=== PATIENT | female | born 1990 | race Hispanic/Latino ===

== ENCOUNTER 2020-04-11 04:55 | Inpatient (IN) | payer BC, OTHER, SELFPAY ==
[2020-04-09 14:01] VITALS: BMI 38.7
[2020-04-11] VITALS (71 sets, daily range): BP systolic 92–150; BP diastolic 55–133; PULSE 73–168; RESP 20; TEMP 36.4–37.2; O2SAT 100; BMI 40.0
[2020-04-11 05:55] LABS: Basophils Absolute Auto 0.1 K/mm3 (0.0-0.1); Basophils Percent Auto 0.5 % (0.2-1.2); Eosinophils Absolute Auto 0.1 K/mm3 (0-0.3); Eosinophils Percent Auto 0.8 % (0-4.4); Hematocrit 33.1 % (37.0-47.0); Hemoglobin 10.8 g/dL (12.0-15.0); Immature Granulocyte Absolute 0.08 K/mm3 (0.00-0.031); Immature Granulocyte Percent A 0.7 % (0-0.5); Lymphocytes Absolute Auto 3.52 K/mm3 (0.9-3.2); Lymphocytes Percent Auto 31.3 % (18.3-44.2); Mean Corpuscular HGB Conc 32.6 g/dl (32-36); Mean Corpuscular Volume 76.6 fl (80-100); Mean Platelet Volume 11.8 fl (7.4-10.4); Monocytes Absolute Auto 0.8 K/mm3 (0.1-0.6); Monocytes Percent Auto 7.4 % (2.6-8.5); Neutrophils Absolute Auto 6.7 K/mm3 (1.3-6.7); Neutrophils Percent Auto 59.3 % (45.5-73.1); Platelet Count Result 223 k/mm3 (150-375); Red Blood Count 4.32 M/mm3 (4.2-5.4); White Blood Count 11.2 K/mm3 (4.5-10.0)
--- NOTE | 2020-04-11 05:55 | LDADM ---
This patient, Linda Singleton, was admitted to Labor/Delivery/Recovery 102 on 04/11/20 at 04:55. Plans for labor, pain management and were discussed with patient. Patient/family oriented to hospital policies and general routines including ID bracelet, bed and alarms, visiting hours, pain management, procedures, bathroom and other care routines, personal items, smoking policy, room service/diet and guest tray routines, infant security routines, and visiting hours. Patient/Family are encouraged to report perceived risks to care and to ask questions if they do not understand what they are told or what they should do. See OBIX for further documentation.
[2020-04-11] MEDS: LACTATED RINGERS 1,000 ML 125 ML IV CONT ×3 (06:52→13:43)
--- NOTE | 2020-04-11 07:05 | WPDANESEPP ---
Anes - Eval Pre Procedure Procedure: Labor epidural Date/Time: 04/11/20 07:05 Surgeon: reji Preop Diagnosis: pain during labor Pre Op Diagnosis: Ind Patient Data Age: 30 Gender: F Height: 1.52 m Weight: 93 kg Last Vital Signs Pulse 86 04/11/20 07:01 BP 102/86 04/11/20 07:01 Allergies Allergy/AdvReac Type Severity Reaction Status Date / Time No Known Allergies Allergy Verified 04/11/20 05:52 Home Medications Medication Instructions Recorded Confirmed Type vit no.[id number] 1 tablet PO DAILY 04/11/20 04/11/20 History [ Vitamin] Laboratory Tests 04/11/20 04/11/20 05:44 05:44 WBC 11.2 K/mm3 H K/mm3 (4.5-10.0) RBC 4.32 M/mm3 M/mm3 (4.2-5.4) Hgb 10.8 g/dL L g/dL (12.0-15.0) Hct 33.1 % L % (37.0-47.0) MCV 76.6 fl L fl (80-100) MCH 25.0 pg L pg (26-34) MCHC 32.6 g/dl g/dl (32-36) RDW 13.0 % % (11.5-14.5) Plt Count 223 k/mm3 k/mm3 (150-375) MPV 11.8 fl H fl (7.4-10.4) Immature Gran % (Auto) 0.7 % H % (0-0.5) Neut % (Auto) 59.3 % % (45.5-73.1) Lymph % (Auto) 31.3 % % (18.3-44.2) [place] % (Auto) 7.4 % % (2.6-8.5) Eos % (Auto) 0.8 % % (0-4.4) Baso % (Auto) 0.5 % % (0.2-1.2) Lymph # (Auto) 3.52 K/mm3 H K/mm3 (0.9-3.2) [place] # (Auto) 0.8 K/mm3 H K/mm3 (0.1-0.6) Eos # (Auto) 0.1 K/mm3 K/mm3 (0-0.3) Baso # (Auto) 0.1 K/mm3 K/mm3 (0.0-0.1) Abs Immat Gran (auto) 0.08 K/mm3 H K/mm3 (0.00-0.031) Absolute Neuts (auto) 6.7 K/mm3 K/mm3 (1.3-6.7) Absolute Nucleated RBC 0.0 K/mm3 K/mm3 (0.0-0.012) Nucleated RBC % 0.0 % % (0.0-0.2) RPR Pending Patient hx anesthesia problems: none Family hx anesthesia problems: none [facility] Social History Social History Smoking status: Never smoker Substance use: never Gender identity (if verbalized by the patient): Female Sexual Orientation (if Verbalized by the Patient): Straight or Heterosexual Spiritual care concerns: No Exam Day of Procedure 04/11/20 07:05
--- NOTE | 2020-04-11 07:37 | WPDOBADMIT ---
Obstetrics - Admit Note Admission Note: record reviewed. No pertinent additions to the history and/or any subsequent changes in the physical findings that are not consistent with the expected course of the were found. MIL, attempted AROM scant fluid, pitocin, anticipate vaginal delivery Additions to the history and/or subsequent changes in the physical findings follow. None.
[2020-04-11] MEDS: OXYTOCIN 30 UNITS/NS 500 ML 30 UNITS/500 ML BAG IV CONT (08:13)
[2020-04-11 11:22] LABS: Rapid Plasma Reagin Non-Reactive (NonReactive)
[2020-04-11] MEDS: miSOPROStol 200 MCG TABLET 1000 MCG (14:57)
--- NOTE | 2020-04-11 15:01 | PM.OBPRVD ---
OB - Delivery Note Procedure Delivery date: 04/11/20 Procedure: vaginal delivery Intrapartal events: None Induction method: AROM and per pitocin protocol Delivery monitor: external FHT, external uterine, internal FHT and internal uterine Route of delivery: Laceration description: Perineal - 1st Degree Delivery repair: vicryl Specimen: No Estimated blood loss (mL): 115 Anesthesia type: Epidural Disposition: other () Complications: small increase in bleeding post placental delivery 1000mcg cytotec placed rectally and bleeding minimal, mother and baby in stablel condition Baby Date of : 04/11/20 Time of : 14:49 Weeks of gestation at delivery: 39 gender: Male Weight (pounds): 7 Weight (ounces): 5 presentation: vertex position: Right Occiput Anterior Placenta delivery description: Spontaneous cord vessel description: 3 Vessels, Nuchal Cord (x2) and Tight score one minute: 8 score five minutes: 8
[2020-04-11] MEDS: OXYTOCIN 30 UNITS/NS 500 ML 30 UNITS/500 ML BAG 125 UNITS IV CONT (15:22)
[2020-04-11] MEDS: IBUPROFEN 600 MG TABLET PO ×2 (16:27→22:49)
[2020-04-11] MEDS: WITCH HAZEL 40 PADS 1 PAD TOPICAL (16:28)
[2020-04-11] MEDS: BENZOCAINE 20% AER SPR (*SP) 56 GM CAN 1 SPRAY TOPICAL (16:28)
--- NOTE | 2020-04-11 17:54 | OBPPTRN ---
Patient transferred to post room # 281 via wheelchair. Support person present. Oriented to unit, room, information board, rooming in, admission packet and security measures. Patient verbalizes understanding.
[2020-04-11] MEDS: ACETAMINOPHEN 325 MG TABLET 650 MG PO (19:09)
[2020-04-12 04:59] LABS: Hematocrit 29.9 % (37.0-47.0); Hemoglobin 9.7 g/dL (12.0-15.0)
--- NOTE | 2020-04-12 07:24 | WPDANESPN ---
Anes - Prog Note Post-Op Date/Time: 04/12/20 07:24 Cardiovascular status: normal Respiratory status: normal Airway patency: baseline Mental status: baseline Post-Op hydration status: normal Vital Signs: Last Vital Signs Temp 37.2 C 04/11/20 19:00 Pulse 100 04/11/20 19:00 Resp 20 04/11/20 19:00 BP 114/69 04/11/20 19:00 Pulse Ox 100 04/11/20 19:00 I/O: Intake & Output 04/11/20 04/11/20 04/12/20 15:59 23:59 07:59 Intake Total 3000 740 Output Total 315 140 Balance 2685 600 Laboratory Tests 04/12/20 04:36 04/11/20 04/11/20 04/12/20 05:44 05:44 04:36 Hgb 9.7 L Hct 29.9 L RPR Non-reactive Blood Type O Positive Antibody Screen Negative Post-procedural complaints: none Patient Feedback: Patient satisfied with anesthetic care.
--- NOTE | 2020-04-12 07:58 | P.PNOB_ITS ---
OB - PN: Subj Subjective Date/time seen: 04/12/20 07:58 Patient comments: no complaints, pain well controlled and other (Lochia similar to menses) [place] baby status: doing well OB - PN: Obj Data Labs CBC & Chem 7: 04/12/20 04:36 Labs: Laboratory Results - last 24 hr 04/11/20 04/11/20 04/12/20 05:44 05:44 04:36 Hgb 9.7 L Hct 29.9 L RPR Non-reactive Blood Type O Positive Antibody Screen Negative OB - PN A/P Plan day: 1 (s/p vaginal delivery, doing well) Plan: routine care and discharge home Comments: Follow up in 4 weeks Time Spent With Patient Time: Total time spent is greater than 50% in coordination of care (as documented) at patient's floor/unit and/or counseling patient: Time with patient: less than 15 minutes Exam Const: General: no acute distress GI: Inspection: other (Fundus firm and nontender at umbilicus) GI Palp: Yes Soft to palpation and No Tenderness to palpation present (GI) Extrem: General: no edema
[2020-04-12 08:45] VITALS: BP 109/75; PULSE 86; RESP 18; TEMP 36.4; O2SAT 99
[2020-04-12] MEDS: POLYSACCHARIDE IRON COMPLEX 150 MG CAPSULE PO (08:56)
[2020-04-12] MEDS: DOCUSATE SODIUM 100 MG CAPSULE PO (08:56)
[2020-04-12] MEDS: IBUPROFEN 600 MG TABLET PO (08:56)
[2020-04-12] MEDS: TETANUS,DIPHTHERIA,AC PERTUSSIS ADULT (0.5 ML) BOOSTRIX IM (08:57)
[2020-04-13 10:31] VITALS: BP 117/81; PULSE 76; RESP 20; TEMP 36.7; O2SAT 100
--- NOTE | 2020-04-14 07:21 | PM.OBDSVD ---
OB - DS: Summary OB Procedures : None OB Procedures Intrapartum: Spontaneous Vag Delivery OB Procedures: : None Time Spent with Patient Time attestation: Total time spent providing and/or coordinating discharge services: Discharge Plan Discharge Attending physician on discharge: Petra Strong Consulting providers: Audrey Puente Discharging Clinician: Virgie Alves Patient Disposition: Home, Self-Care Activity: may shower and pelvic rest Diet: regular Discharge Instructions: Education: Mom and Baby Guide Given to: Mother Follow-Up: Call your delivering provider's office for an appointment to be seen in: 4 weeks Mom and baby should come to the [facility] for the follow-up appointment. Appointment Date/Time: April 13, 2020 at 10:00 am What to expect at your follow-up visit: Physical Assessment Call [phone] if you are unable to keep your appointment time. BREAST CARE: 1. Wear a snug supportive bra. 2. For engorgement discomfort: Bottle Feeding: A. May apply ice packs PERINEAL CARE: 1. Until bleeding stops, use your tuan bottle after urinating 2. Change your pad frequently throughout the day 3. You may take sitz baths several times a day (fill your bathtub with warm water and soak for 20 minutes.) Do NOT bathe in the water 4. No tub baths until seen by your physician - You may shower ACTIVITY: 1. Rest as much as possible. 2. Do not exercise or lift anything heavier than your baby (such as laundry or other children.) 3. Avoid stairs or driving as much as possible. 4. Do not put anything into the vagina. No douching, tampons, or sexual activity until seen by physician. NOTIFY PHYSICIAN IF YOU HAVE ANY QUESTIONS OR IF ANY OF THE FOLLOWING SYMPTOMS OCCUR: 1. If your stitches become red, swollen, or more painful than what you have experienced in the hospital. 2. If your vaginal bleeding becomes foul smelling. 3. If your vaginal bleeding becomes more heavy than a period or if your bleeding changes from pink to bright red. However, you may pass an occasional walnut-sized clot once or twice for the first week . 4. If you experience a sharp, shooting pain in you calves. 5. If you discover a hard, reddened area on your breast or if you experience flu-like symptoms. DIET: 1. Eat regular, well-balanced meals. 2. Drink plenty of fluids daily. Stand Alone Forms: General Discharge Information Follow-up/Referrals: Audrey Puente CNM [Certified Nurse Health Occupations Instructor] - 4 Weeks Discharge Medications: New ibuprofen 600 mg Tablet 600 mg PO Q6H PRN (Reason: Cramping) Qty: 60 RF: 0 Continued Vitamin 27 mg iron- 800 mcg Tablet 1 tablet PO DAILY RF: 0 Date of admission: 04/11/20 04:55 Primary Care Provider: Barron,Davide Kolb Admitting Provider: Petra Strong Discharge Date/Time: 04/12/20 16:41 Attending physician on admission: Virgie Alves
== END 2020-04-12 16:41 | disposition home or self-care (01) | DRG 806 ==
LOC: ANHLDR 05:14 → ANHOB2 04-12 07:59 → ANHLDR 04-13 11:53 → ANHOB2 04-13 11:53
PROVIDERS: Advanced Practice Midwife; Admitting Provider Obstetrics & Gynecology; PCP Family Medicine; Visit Provider Obstetrics & Gynecology
DX: O69.1XX0 Labor and delivery complicated by cord around neck, with compression, not applicable or unspecified (principal); O72.1 Other immediate postpartum hemorrhage; Z37.0 Single live birth; Z3A.39 39 weeks gestation of pregnancy; O70.0 First degree perineal laceration during delivery
CPT/HCPCS: 36415; 85014; 85018; 85025; 86592; 86850; 86900; 86901; 90715; A9270; J2590; J2795; J7120